=== PATIENT | male | born 1950 | race Caucasian/White ===

== ENCOUNTER 2023-02-11 09:05 | Day surgery (SDC) | payer OTHER ==
[~2023-02-11] VITALS: Ht 177.8 cm; Wt 67.6 kg
[2023-02-11] VITALS (15 sets, daily range): BP systolic 109–163; BP diastolic 75–102
[~2023-02-11 09:05] MED LIST: ALBU90OI INH; HYDROCHLOROTH12.5 MG PO; LOSA25 PO; METO50ER PO
--- NOTE | 2023-02-11 09:57 | NUR ---
Ambulatory in Day Surgery. History, Chart, Medications and Allergies reviewed before start of procedure. Lungs clear T/O to Auscultation. Patient confirms NPO status and agrees with scheduled surgery. Pre-Op teaching done. Pt verbalizes understanding. Patient States Post-Procedure ride home has been arranged.
--- NOTE | 2023-02-11 10:34 | NUR ---
02/11/23 Krysta Downey HISTORY, CHART, MEDICATIONS AND ALLERGIES REVIEWED BEFORE START OF PROCEDURE. PATIENT CONFIRMS NPO STATUS AND AGREES WITH SCHEDULED PROCEDURE. 3-LEAD EKG REVIEWED WITH PHYSICIAN PRIOR TO START OF PROCEDURE. MONITOR INTACT WITH CONTINUOUS PULSE OXIMETRY,CAPNOGRAPHY, 3-LEAD EKG, INTERMITTENT BP. SUPPLEMENTAL O2 TO BE TITRATED THROUGHOUT PROCEDURE TO MAINTAIN O2 SATURATION ABOVE 90%. PATIENT DETERMINED TO BE ASA APPROPRIATE FOR PROPOFOL SEDATION PRIOR TO START OF PROCEDURE BY .
--- NOTE | 2023-02-11 10:58 | NUR ---
REPORT RECIEVED. PT UP IN BED. DR GUTIERREZ AT BEDSIDE. PT DECLINES PO FLUIDS AND FOOD. VSS. ON ROOM AIR
--- NOTE | 2023-02-11 11:14 | NUR ---
Patient up to Ambulate independently. Gait steady. Discharge instructions reviewed with patient AND Patient verbalizes understanding. Copy given to patient to take home. Discharged via wheelchair to private car for ride home.
== END 2023-02-11 11:18 | disposition home or self-care (01) ==
LOC: ORSCMMR 09:05 → ORD 10:00 → ORSCMMR 10:00
PROVIDERS: Internal Medicine Gastroenterology
PROC: 0DBH8ZX Excision of Cecum, Via Natural or Artificial Opening Endoscopic, Diagnostic (ICD-10-PCS; principal; 2023-02-11 10:00)
DX: K62.5 Hemorrhage of anus and rectum (principal); Z80.0 Family history of malignant neoplasm of digestive organs; D12.0 Benign neoplasm of cecum; K64.4 Residual hemorrhoidal skin tags; I10 Essential (primary) hypertension; J44.9 Chronic obstructive pulmonary disease, unspecified; K64.8 Other hemorrhoids; K59.39 Other megacolon; K57.30 Diverticulosis of large intestine without perforation or abscess without bleeding; F17.210 Nicotine dependence, cigarettes, uncomplicated; Z79.899 Other long term (current) drug therapy
CPT/HCPCS: 88305; J2250; J2704; J7120

== ENCOUNTER → 2024-05-31 | Outpatient (CLI) | payer OTHER ==
[~2024-05-31] MED LIST changes: +TIOT18 INH
== END | disposition home or self-care (01) ==
LOC: LAB 17:12 → LAB SHORT 17:12
DX: R21 Rash and other nonspecific skin eruption (principal)
CPT/HCPCS: 87070; 87205

== ENCOUNTER → 2024-09-18 | Outpatient (CLI) | payer OTHER | LOC: LAB SHORT 14:05 → PLD 14:05 → LAB 14:05 | DX: D48.5 Neoplasm of uncertain behavior of skin (principal); L53.8 Other specified erythematous conditions; R20.8 Other disturbances of skin sensation | CPT/HCPCS: 88312 ==

== ENCOUNTER → 2024-12-11 | Outpatient (CLI) | payer OTHER | END | disposition home or self-care (01) | LOC: LAB 18:33 → LAB SHORT 18:33 | DX: R21 Rash and other nonspecific skin eruption (principal) | CPT/HCPCS: 87071; 87075; 87102; 87205 ==

== ENCOUNTER → 2025-01-15 | Outpatient (CLI) | payer OTHER | LOC: LAB 13:30 → LAB SHORT 13:30 | DX: L08.9 Local infection of the skin and subcutaneous tissue, unspecified (principal); R21 Rash and other nonspecific skin eruption | CPT/HCPCS: 87070; 87205 ==